=== PATIENT | female | born 1980 | race Caucasian/White ===

== ENCOUNTER 2017-04-17 21:12 | Emergency (ER) | payer SELFPAY ==
[~2017-04-17] VITALS: Ht 165.1 cm; Wt 65.0 kg
[2017-04-17 21:13] VITALS: BP 139/77; PULSE 113; RESP 16; TEMP 98.3; O2SAT 100
[2017-04-17] MEDS ORDERED: ALPR.25 PO (22:37)
[2017-04-17] MEDS ORDERED: ACETAMINOPHEN/HYDROcodone 325 MG/5 MG TAB PO ONE ×2 (22:45→23:30)
[2017-04-17] MEDS ORDERED: HYDR-3533 PO (23:13)
--- NOTE | 2017-04-17 23:14 | PD ---
HPI Chief Complaint: Fall Time Seen by Provider: 22:25 Travel History International Travel<30 days: No Contact w/Intl Traveler<30days: No Traveled to known affect area: No History of Present Illness HPI Is a 36 year-old woman who presents to the emergency department complaining of left wrist pain. [place] the [place] decided to do a back handspring in the sand. When she went to go do it she heard a crunch in her wrist and had severe pain. She's had worsening pain and swelling since then. This happened about 2 hours or so ago. History Past Medical History Narrative Medical Anxiety Tetanus Vaccination: < 5 Years Influenza Vaccination: No LMP: 04/10/17 Social History Alcohol Use: Yes (SOCIALLY) Tobacco Use: No Allergies-Medications (Allergen,Severity, Reaction): Coded Allergies: No Known Allergies (Unverified , 04/17/17) Reported Meds & Prescriptions Reported Meds & Active Scripts Active Reported Xanax (Alprazolam) 0.25 Mg Tab 0.25 Mg PO AC BREAKFAST PRN Review of Systems Except as stated in HPI: all other systems reviewed are Neg Physical Exam Narrative GENERAL: 36 year-old woman, generally well-appearing, no acute distress. SKIN: Warm and dry. CARDIOVASCULAR: Warm and well perfused. RESPIRATORY: Normal rate and effort. MUSCULOSKELETAL: Pain and tenderness and deformity in the left wrist. Radial/ shoulder/median nerve functions intact. Sensations intact. Good capillary refill. NEUROLOGICAL: Awake and alert. No gross deficits. Data Data Last Documented VS Vital Signs Date Time Temp Pulse Resp B/P Pulse Ox O2 Delivery O2 Flow Rate FiO2 04/17/17 22:37 16 99 Room Air 04/17/17 21:13 98.3 113 139/77 Orders Wrist, Complete (Gax3xpl) (04/17/17 ) Acetamin-Hydrocod 325-5 Mg ([place] 5-325 (04/17/17 22:45) Ice/Cold Pack (04/17/17 22:41) MDM Medical Decision Making Medical Screen Exam Complete: Yes Emergency Medical Condition: Yes Interpretation(s) X-ray left wrist: Minimally comminuted transverse distal radius fracture with minimal angulation. Differential Diagnosis Fracture, contusion, strain or sprain, other Narrative Course Medical decision making Is a 36 year-old woman who presents to the emergency department with left arm pain. She has a distal radius fracture. She is from out of town. We'll place in a splint. Outpatient follow-up. Diagnosis Primary Impression: Fracture of left distal radius Additional Instructions: Use Lortab as needed for pain. Keep splint clean and dry. Wear sling anytime year-old woman on your feet. Keep arm elevated to reduce swelling. Return to the emergency department for any new or worsening symptoms. Med/Other Pt SpecificInfo: Prescription(s) given Scripts Hydrocodone-Acetaminophen (Lortab)5-325 Mg Tab1-2 Tab PO Q6H PRN (PAIN) #20 TAB Prov:Alcon Agustin MD 04/17/17 Disposition: 01 DISCHARGE HOME Condition: Stable Alcon Agustin MD Apr 17, 2017 23:14
--- NOTE | 2017-04-17 23:23 | RADRPT ---
EXAM DATE/TIME: 04/17/2017 22:48 [facility] COMPARISON: No previous studies available for comparison. INDICATIONS : Left wrist pain and swelling after doing a backflip at the beach. MEDICAL HISTORY : None. SURGICAL HISTORY : None. ENCOUNTER: Initial ACUITY: 1 day PAIN SCORE: 10/10 LOCATION: Left wrist FINDINGS: A minimally displaced, slightly comminuted, partially impacted primarily transverse fracture of the d istal left radius is present with the dominant fracture line traversing the radius about 9 mm proxima l to the radiocarpal joint. The distal ulna is intact. There is slight ulna positive variance which m ay relate to the fracture impaction. The carpals are intact.. CONCLUSION: Slightly impacted distal left radial fracture as above Jamari Ruggiero MD on April 17, 2017 at 23:11 Board Certified Radiologist. This report was verified electronically.
[2017-04-17 23:24] VITALS: RESP 16
[2017-04-17 23:31] VITALS: BP 121/52
== END 2017-04-17 23:32 | disposition home or self-care (01) ==
LOC: NEPD 21:12
DX: S52.502A Unspecified fracture of the lower end of left radius, initial encounter for closed fracture (principal); X58.XXXA Exposure to other specified factors, initial encounter; Y93.43 Activity, gymnastics; Y92.832 Beach as the place of occurrence of the external cause
CPT/HCPCS: 29125; 73110